=== PATIENT | female | born 1980 ===

== ENCOUNTER → 2018-04-05 23:00 | Outpatient (REF) | payer OTHER, SELFPAY ==
[2018-04-06 01:59] LABS: Basophils Absolute Auto 0 /uL (0-100); Basophils Percent Auto 0.3 % (0-2); Eosinophils Absolute Auto 100 /uL (0-450); Eosinophils Percent Auto 1.6 % (2-4); Hematocrit 30.8 % (36-46); Lymphocytes Absolute Auto 1900 /uL (1100-4500); Lymphocytes Percent Auto 23.5 % (25-40); Mean Corpuscular HGB Conc 29.3 % (30-36); Mean Corpuscular Hemoglobin 19.9 PG (26-34); Monocytes Absolute Auto 600 /uL (0-900); Monocytes Percent Auto 7.4 % (3-14); Neutrophils Absolute Auto 5300 /uL (1500-7000); Neutrophils Percent Auto 67.2 % (50-75); Platelet Count 416 X10^3/uL (150-400); Red Blood Cell Count 4.53 X10^6/uL (4.0-5.2); Red Cell Distribution Width 18.4 % (11.6-14.8); White Blood Cell Count 7.9 X10^3/uL (4.5-11.0)
[2018-04-06 02:05] LABS: Add Manual Diff / Slide Review SLIDE REVIEW
[2018-04-06 06:22] LABS: Alanine Aminotransferase 56 IU/L (9-52); Albumin Globulin Ratio 1.3 (1.0-2.8); Alkaline Phosphatase 84 U/L (38-126); Aspartate Aminotransferase 24 IU/L (14-36); BUN Creatinine Ratio 17.1 (6-22); Bilirubin Total 0.2 mg/dL (0.2-1.3); Blood Urea Nitrogen 12 mg/dL (7-17); Calcium 9.4 mg/dL (8.4-10.2); Carbon Dioxide 28 mmol/L (22-32); Chloride 104 mmol/L (98-107); Estimated Glomerular Filt Rate > 60.0 mL/min (>60); Glucose 89 mg/dL (70-100); HEMOLYSIS < 15 (0-50); Potassium 4.5 mmol/L (3.4-5.1); Sodium 140 mmol/L (137-145)
[2018-04-06 06:57] LABS: Ferritin 4.2 ng/mL (6.27-137)
[2018-04-06 07:47] LABS: Microcytosis 3+
[2018-04-09 14:08] LABS: Anti Thyroglobulin Antibody 2 IU/mL (< 2); Thyroid Peroxidase Antibodies 1 IU/mL (< 9)
== END ==
LOC: LAB 23:00
PROVIDERS: Visit Provider Family Medicine
DX: G43.109 Migraine with aura, not intractable, without status migrainosus (principal); R42 Dizziness and giddiness; R63.5 Abnormal weight gain; R53.83 Other fatigue
CPT/HCPCS: 36415; 80053; 82728; 84439; 84443; 85025; 86376; 86800

== ENCOUNTER → 2018-06-24 21:46 | Outpatient (ROUT) | payer OTHER, SELFPAY ==
[2018-06-24 23:21] LABS: Free T4, Direct Thyroxine 1.23 ng/dL (0.78-2.19)
[2018-06-24 23:35] LABS: Thyroid Stimulating Hormone 2.26 uIU/mL (0.47-4.68)
[2018-06-24 23:37] LABS: Ferritin 5.8 ng/mL (6.27-137)
[2018-06-27 16:08] LABS: Anti Thyroglobulin Antibody 4 IU/mL (< 2); Thyroid Peroxidase Antibodies 1 IU/mL (< 9)
== END ==
PROVIDERS: Visit Provider Family Medicine
DX: R63.5 Abnormal weight gain (principal); D50.9 Iron deficiency anemia, unspecified; E06.3 Autoimmune thyroiditis; R53.83 Other fatigue
CPT/HCPCS: 36415; 82728; 84439; 84443; 86376; 86800

== ENCOUNTER → 2018-07-05 20:56 | Outpatient (ROUT) | payer OTHER, SELFPAY ==
[2018-07-05 22:07] LABS: Add Manual Diff / Slide Review NO; Basophils Absolute Auto 0 /uL (0-100); Basophils Percent Auto 0.6 % (0-2); Eosinophils Absolute Auto 100 /uL (0-450); Eosinophils Percent Auto 1.5 % (2-4); Hematocrit 32.3 % (36-46); Hemoglobin 9.8 g/dL (12.0-16.0); Lymphocytes Absolute Auto 1500 /uL (1100-4500); Lymphocytes Percent Auto 19.7 % (25-40); Mean Corpuscular HGB Conc 30.2 % (30-36); Mean Corpuscular Hemoglobin 21.2 PG (26-34); Monocytes Absolute Auto 500 /uL (0-900); Monocytes Percent Auto 7.2 % (3-14); Neutrophils Absolute Auto 5300 /uL (1500-7000); Platelet Count 341 X10^3/uL (150-400); Red Blood Cell Count 4.61 X10^6/uL (4.0-5.2); Red Cell Distribution Width 20.8 % (11.6-14.8); White Blood Cell Count 7.5 X10^3/uL (4.5-11.0)
[2018-07-05 22:24] LABS: Alanine Aminotransferase 89 IU/L (9-52); Albumin 4.1 g/dL (3.5-5.0); Albumin Globulin Ratio 1.4 (1.0-2.8); Alkaline Phosphatase 70 U/L (38-126); Aspartate Aminotransferase 43 IU/L (14-36); BUN Creatinine Ratio 18.6 (6-22); Bilirubin Total 0.5 mg/dL (0.2-1.3); Blood Urea Nitrogen 13 mg/dL (7-17); Calcium 9.6 mg/dL (8.4-10.2); Carbon Dioxide 28 mmol/L (22-32); Chloride 103 mmol/L (98-107); Estimated Glomerular Filt Rate > 60.0 mL/min (>60); Globulin 2.9 g/dL (1.7-4.1); Glucose 83 mg/dL (70-100); HEMOLYSIS < 15 (0-50); Potassium 4.2 mmol/L (3.4-5.1); Sodium 141 mmol/L (137-145)
[2018-07-05 22:40] LABS: HCG Quantitative /Beta subunit < 2.39 mIU/mL
[2018-07-05 22:41] LABS: Luteinizing Hormone 5.92 mIU/mL
[2018-07-05 22:42] LABS: Free T3, Triiodothyronine Free 3.88 pg/mL (2.77-5.27)
[2018-07-05 22:48] LABS: Anisocytosis 2+; Microcytosis 2+
[2018-07-05 23:22] LABS: Follicle Stimulating Hormone 5.34 mIU/mL
[2018-07-10 12:43] LABS: Testosterone,Free 1.5
[2018-07-10 13:55] LABS: Estrogen 164.5 pg/mL
[2018-07-12 12:58] LABS: Testosterone, Total 21.4
== END ==
PROVIDERS: Visit Provider Physician Assistant
DX: N93.9 Abnormal uterine and vaginal bleeding, unspecified (principal)
CPT/HCPCS: 36415; 80053; 82672; 83001; 83002; 84402; 84403; 84481; 84702; 85025